=== PATIENT | male | born 1950 | race Caucasian/White ===

== ENCOUNTER 2018-07-31 06:28 | Inpatient (IN) | payer MEDICARE ==
[2018-07-25 10:41] LABS: BASOPHILS # (AUTO) 0.1 (0.0-0.1); BASOPHILS % 0.4 % (0.0-1.0); EOSINOPHILS # (AUTO) 0.2 (0.0-0.4); EOSINOPHILS % 2.1 % (0.0-6.0); HEMATOCRIT 42.6 % (38.2-49.6); LYMPHOCYTES # (AUTO) 3.3 (1.0-3.2); LYMPHOCYTES % 28.3 % (18.0-39.1); MEAN CORPUSCULAR HEMOGLOBIN 30.2 pg (28-32); MEAN CORPUSCULAR HGB CONC 32.9 g/dL (31-35); MONOCYTES # (AUTO) 0.8 (0.2-0.8); MONOCYTES % 7.1 % (4.4-11.3); NEUTROPHILS # (AUTO) 7.1 (2.1-6.9); NEUTROPHILS % 61.5 % (38.7-80.0); PLATELET COUNT 278 x10e3/uL (140-360); RED BLOOD COUNT 4.63 x10e6/uL (4.3-5.7); RED CELL DISTRIBUTION WIDTH 15.5 % (11.7-14.4)
--- NOTE | 2018-07-25 10:48 | Diagnostic Imaging Report ---
EXAMINATION: PA and lateral views of the chest. COMPARISON: None CLINICAL HISTORY: Preadmission DISCUSSION: Lines/tubes: None. Lungs: Right middle lobe atelectasis. Remainder lungs are clear. Pleura: No pleural effusion or pneumothorax. Heart and mediastinum: The cardiomediastinal silhouette is normal. Bones and soft tissues: No acute bony abnormalities. IMPRESSION: Right middle lobe atelectasis Signed by: Dr. Todd Tucker M.D. on 07/25/2018 10:45 AM
[2018-07-25 10:59] LABS: ANION GAP 16.3 mmol/L (8-16); BLOOD UREA NITROGEN 19 mg/dL (7-26); BUN/CREATININE RATIO 20 (6-25); CALCIUM 9.7 mg/dL (8.4-10.2); CARBON DIOXIDE 22 mmol/L (22-29); CHLORIDE 102 mmol/L (98-107); CREATININE, SERUM 0.96 mg/dL (0.72-1.25); EST GLOMERULAR FILTRATION RATE > 60 ML/MIN (60-); GLUCOSE 132 mg/dL (74-118); POTASSIUM 4.3 mmol/L (3.5-5.1); SODIUM 136 mmol/L (136-145)
[~2018-07-31] VITALS: Ht 172.7 cm; Wt 136.5 kg
[~2018-07-31 06:28] MED LIST: ALLOPURINOL300 MG PO; ANORO ELLIPTA; ASPIRIN81 MG; ATORVASTATIN CA20 MG PO; B12; BACLOFEN; BREO ELLIPTA; CENTRUM SILVER1 EAC3; CLOPIDOGREL75 MG PO; COMBIVENT RESPIM4 GM IH; GLIMEPIRIDE2 MG PO; INDOMETHACIN75 MG; JARDIANCE; LASIX20 MG PO; LISINOPRIL10 MG PO; MAGNESIUM OXID400 MG PO; METFORMIN HCL850 MG PO; POTASSIUM; PREDNISONE10 MG PO; RANITIDINE HCL150 MG; SPIRONOLACTONE25 MG PO; TRIAMCINOLONE A15 G1; VITAMIN C500 MG
--- OUTSIDE RECORDS SUMMARY | 2018-07-31 06:30 | XMS REPORT ---
Author Author [facility] Organization [facility] Address Unknown Phone Unavailable Care Team Providers Care Naval Architect Name Role Phone Dana ABEL Unavailable Unavailable Payers Payer Name Policy Type Policy Number Effective Date Expiration Date Problems This patient has no known problems. Allergies, Adverse Reactions, Alerts Allergy Name Allergy Type Status Severity Reaction(s) Onset Date Inactive Date Treating Clinician Comments SHRIMP DA Active SV 2014-11-14 00:00:00 Medications This patient has no known medications. Results Test Description Test Time Test Comments Text Results Atomic Results Result Comments CHEST 2 VIEWS 2018-07-25 10:44:00 [place] [address] Patient Name: JOSIANE DELGADO MR #: [id number] : 1950 Age/Sex: 68/M Req #: [id number] Adm Physician: Ordered by: ARCADIO ABEL MD Report #: [id number] Location: OR Room/Bed: Procedure: [id number] DX/CHEST 2 VIEWS Exam Date: 07/25/18 Exam Time: 1030 REPORT STATUS: Signed EXAMINATION: PA and lateral views of the chest. COMP ARISON: None CLINICAL HISTORY: Preadmission DISCUSSION: Lines/tubes: None. Lungs: Right middle lobe atelectasis. Remainder lungs are clear. Pleura: No pleural effusion or pneumothorax. Heart and mediastinum: The cardiomediastinal silhouette is normal. Bones and soft tissues: No acute bony abnormalities. IMPRESSION: Right middle lobe atelectasis Signed by: Dr. Ofe Baez M.D. on 07/25/2018 10:45 AM Dictated By: OFE BAEZ MD 1045 Transcribed By: JASPER on 07/25/18 1045 COPY TO: ARCADIO ABEL MD
[2018-07-31] MEDS ORDERED: LIDOCAINE HCL (LTA) 4 ML SOLN ONE (06:48)
[2018-07-31] MEDS ORDERED: ACETAMINOPHEN 1000 MG/100 ML 100 ML IV ONE (06:48)
[2018-07-31] MEDS ORDERED: SCOPOLAMINE 1.5 MG PATCH ONE (06:48)
[2018-07-31] MEDS ORDERED: CEFAZOLIN SOD 2 GM/D5W 50ML 50 ML IV ONE (07:18)
[2018-07-31] MEDS ORDERED: BUPIVACAINE 0.25% 30ML SDV INJ ONE (08:28)
--- NOTE | 2018-07-31 09:16 | NUR ---
SPIRITUAL CARE - Pre-Surgery Assessment: Pt in bed. Pt's at bedside. Pt reported supportive attention from family and friends. Intervention: I provided pastoral presence, hospitality, and sympathetic listening. I acquainted pt with availability of sales planning analyst while hospitalized. Outcome: Pt expressed appreciation for visit. No need for follow up indicated at this time. KAYLI Yusuflain Spiritual Care Department O: [phone] Pager: [phone] ([phone] + number calling from)
[2018-07-31] MEDS ORDERED: SUGAMMADEX SODIUM 200 MG/2 ML VIAL IV ONE (10:03)
[2018-07-31] MEDS ORDERED: LACTATED RINGER'S 1,000 ML IV SCH (10:17)
[2018-07-31] MEDS ORDERED: SCOPOLAMINE 1.5 MG PATCH TOP SCH (10:30)
[2018-07-31] MEDS ORDERED: DEXTROSE 50% SYRINGE 50 ML IV PRN (10:30)
[2018-07-31] MEDS ORDERED: FENTANYL CITRATE/PF 100MCG/2 ML INJ ONE ×2 (10:40→18:47)
--- NOTE | 2018-07-31 10:43 | Operative Report ---
DATE OF PROCEDURE: July 31, 2018 PREOPERATIVE DIAGNOSES 1. Morbid obesity, body mass index of 45. 2. Type 2 diabetes mellitus. 3. Coronary artery disease. POSTOPERATIVE DIAGNOSES 1. Morbid obesity, body mass index of 45. 2. Type 2 diabetes mellitus. 3. Coronary artery disease. PREOPERATIVE INDICATIONS: Treat disease, prevent complications related to comorbid conditions of obesity. PROCEDURE PERFORMED: Laparoscopic vertical sleeve gastrectomy. ANESTHESIA: General. NAVAL AIRCREWMAN OPERATOR: Socrates David Acetylene Cylinder Packing Mixer (needed due to complexity of case). FLUIDS: 1 L crystalloid. ESTIMATED BLOOD LOSS: 20 mL. DRAINS: None. COMPLICATIONS: None. SPECIMENS: Partial stomach. GRAFTS: None. FINDINGS 1. Adhesions from previous abdominal operation. 2. Otherwise normal upper GI anatomy. 3. Negative intraoperative EGD leak test. PROCEDURAL DETAILS: The patient was brought to the operating room and was intubated under general endotracheal anesthesia. He was sterilely prepped and draped in the usual fashion. A preprocedure pause was performed identifying the patient and the use of perioperative antibiotics, intended procedure, and the staff surgeon. Access was gained through a 5-mm left subcostal incision using a Veress needle. Four additional trocars were placed in standard positions. Abdomen was insufflated. There were adhesions from his previous operation which were carefully lysed using a combination of blunt dissection as well as the [place] LigaSure device. I then placed a liver retractor to expose the stomach and the hiatus. I mobilized the greater curvature of the stomach by ligating the gastroepiploic, short gastric, and posterior short gastric vessels using the [place] LigaSure device. This was done from about 4 cm proximal to the pyloric valve to the left lacy of the diaphragm. Once this was completed, I then inserted an adult-size endoscope along the lesser curvature of the stomach to be used as a bougie. The greater curvature of the stomach was resected with multiple firings of an Endo-LOLY 60-mm purple-load Covidien stapling device which was reinforced with Seamguard. Once the greater curvature of the stomach was resected, we did an intraoperative EGD leak test. No leaks were identified. The specimen was removed through the right periumbilical port site. The periumbilical port site was closed with 0 Vicryl suture using the Venkata-Aden technique in a jnisli-tc-ljcan fashion. We verified hemostasis, removed the liver retractor, desufflated the abdomen, and removed the trocars. Incision sites were closed with 4-0 Monocryl suture in a subcuticular fashion. Dermabond dressings were applied. Bupivacaine 0.25% was used at both the preperitoneal incision sites. The patient tolerated the procedure well. All surgical sponge and instrument counts were correct. The wound was type 2, clean-contaminated. Job#: [id number] TAYLOR
[2018-07-31] MEDS: ENOXAPARIN SOD INJ 40 MG/0.4 ML SYR SC SCH ×2 (11:00→17:00)
[2018-07-31] MEDS: INSULIN REGULAR, HUMAN 100 UNIT/1 ML 3ML VIAL SQ SCH ×2 (11:30→21:00)
[2018-07-31] MEDS ORDERED: HYDROMORPHONE 2MG/ML 2 MG/ML ML ONE (11:38)
[2018-07-31] MEDS ORDERED: TRIAMCINOLONE ACET 0.1% CREAM 15 GM TUBE TOP PRN (12:15)
[2018-07-31] MEDS ORDERED: ONDANSETRON HCL INJ 2MG/ML 2ML 2 MG/ML VIAL ONE ×2 (13:43→17:28)
[2018-07-31] MEDS: ONDANSETRON HCL INJ 2MG/ML 2ML 2 MG/ML VIAL IV PRN (14:01)
[2018-07-31] MEDS: SPIRONOLACTONE 25 MG TAB PO SCH (17:00)
[2018-07-31] MEDS ORDERED: SEVOFLURANE INHAL SOLN 250 ML PEN BTL ONE (17:28)
[2018-07-31] MEDS ORDERED: LIDOCAINE HCL 2% LOCAL INJ 5 ML SDV VIAL INJ ONE (17:28)
[2018-07-31] MEDS ORDERED: EPHEDRINE SULFATE INJ 50 MG/10 ML SYR ONE (17:28)
[2018-07-31] MEDS ORDERED: DEXAMETHASONE SOD PHOS INJ 4 MG/ML VIAL ONE (17:28)
[2018-07-31] MEDS ORDERED: ROCURONIUM BROMIDE 10 MG/ML 5ML VIAL ONE (17:28)
[2018-07-31] MEDS ORDERED: PROPOFOL IV EMULSION 10 MG/ML 20 ML VIAL ONE (17:28)
--- NOTE | 2018-07-31 18:00 | NUR ---
received to rm aaox3,no distress noted, 5 trochar sites to abdomen c/d/i, ivf infusing to r hand 20g no ss of infiltration noted, updated on poc voiced understanding, denies pain at this time, call light in reach will continue to monitor
[2018-07-31] MEDS ORDERED: MIDAZOLAM HCL 2 MG/2 ML VIAL ONE (18:47)
[2018-07-31] MEDS: IPRATROPIUM/ALBUTEROL SULFATE 4 GM INH INH SCH (19:00)
--- NOTE | 2018-07-31 19:31 | Consultation ---
DATE OF CONSULTATION: 07/31/2018 REASON FOR CONSULTATION: Medical management. HISTORY OF PRESENT ILLNESS: This is a 68-year-old white man, who was admitted to [facility] with diagnosis of extreme obesity, BMI of 45, complicating underlying hypertension and type 2 diabetes mellitus. Today, the patient underwent successful laparoscopy vertical sleeve gastrectomy that was performed by his bariatric surgeon namely, Dr. Brian Carlisle. The patient is currently in the postanesthesia care unit and he voices no complaints. REVIEW OF SYSTEMS: GENERAL: Weight is stable. No fever or chills. HEENT: No headaches. No visual changes. CARDIOVASCULAR/RESPIRATORY: No chest pain. No shortness of breath. GI: Minimal midepigastric abdominal pain. Denies any nausea or vomiting at this time. : Goldberg catheter has been removed. NEUROMUSCULAR: No limb weakness or numbness. ALLERGIES: NO KNOWN DRUG ALLERGIES. PAST MEDICAL HISTORY: 1. Coronary artery disease (history of coronary stent placement in 2 coronary arteries in 2004). 2. Ischemic heart disease (history of myocardial infarction age 42). 3. Type 2 diabetes mellitus. 4. Hyperlipidemia. 5. Extreme obesity, BMI 45. 6. GERD. 7. History of gout. 8. Chronic bronchitis. FAMILY HISTORY: Multiple family members with hypertension, but no family history of coronary artery disease or type 2 diabetes mellitus. PAST SURGICAL HISTORY: 1. Coronary artery stent placement in 2 coronary arteries in 2004. 2. Chest wall abscess incision and drainage recently. 3. Sigmoid colon resection on 2 different occasions. 4. Diverting colostomy placement and then removal. SOCIAL HISTORY: He is , lives his . He worked 30 years at [employer]. He is now retired. Quit tobacco smoking in 1989. Denies any alcohol use. MEDICATIONS: 1. Allopurinol 300 mg daily. 2. Aspirin 81 mg daily. 3. Clopidogrel 75 mg daily. 4. Metformin 1000 mg daily. 5. Jardiance 25 mg daily. 6. Potassium chloride 20 mEq daily. 7. Ranitidine 150 mg daily. 8. Prednisone 10 mg daily. 9. Glimepiride 4 mg daily. 10. Lisinopril 10 mg daily. 11. Atorvastatin 20 mg at bedtime. 12. Indomethacin 75 mg every night as needed for arthritic gout pain. 13. Magnesium oxide 400 mg daily as needed for leg cramps. 14. Centrum Silver. 15. Vitamin B12 of 1000 mcg daily. 16. Vitamin C 500 mg daily. 17. Furosemide 20 mg b.i.d. as needed for leg swelling. 18. Spironolactone 12.5 mg once daily as needed for leg swelling. 19. Baclofen 10 mg daily as needed for muscle spasms. 20. Breo Ellipta inhaler one puff daily. 21. Anoro 62.5 mcg/25 mcg one puff daily. 22. Triamcinolone 0.1% cream applied to affected area daily. 23. Ipratropium bromide/albuterol sulfate nebulized treatments every 6 hours as needed for shortness of breath and wheezing. PHYSICAL EXAMINATION: GENERAL: He is awake, alert and oriented. He is very pleasant and conversant. VITAL SIGNS: Blood pressure 120/60, pulse 84, respirator rate is 18, oxygen saturation 100% on 2 L of oxygen. Height 5 feet 8 inches. Weight is 286 pounds, BMI is 45. He is afebrile. INTEGUMENTARY: Skin is warm and dry. No pallor or diaphoresis. HEENT: Anicteric sclerae with moist mucous membranes. NECK: Supple. CARDIOVASCULAR: Distant heart sounds. Regular rate and rhythm. LUNGS: No rales. No rhonchi. No wheezes. ABDOMEN: Obese, benign. No bowel sounds appreciated. EXTREMITIES: No edema or deformity. NEUROLOGIC: Intact. DIAGNOSES: 1. Status post sleeve gastrectomy. 2. Extreme obesity, BMI 45, complicating underlying hypertension and type 2 diabetes mellitus. 3. Coronary artery disease (coronary stents placed in 2 different arteries in 2004). 4. Type 2 diabetes mellitus. PLAN: 1. Encourage incentive spirometry use to prevent atelectasis. 2. Mobilize. 3. Start enoxaparin to prevent deep venous thrombosis. 4. Continue home medications. 5. We will hold all NSAIDs to prevent acute tubular necrosis. 6. We will also hold metformin at this time. 7. We will restart FRED inhibitor namely, lisinopril tomorrow, which will be the first day after surgery. 8. Blood glucose control. 9. Blood pressure control. I spent 45 minutes in the care of this patient. Luis Manuel E Orahood, MD MEO/ROSA /[id number] MTDOwen
[2018-07-31 20:00] VITALS: BP 129/67
[2018-07-31] MEDS ORDERED: ATORVASTATIN 40 MG TAB PO SCH (21:00)
[2018-07-31] MEDS: MORPHINE SULFATE INJ 4 MG/ML INJ 1ML IV PRN (22:00)
[2018-08-01] VITALS: BP 122/57
--- NOTE | 2018-08-01 | NUR ---
PT IN BED, UP TO RESTROOM, VS STABLE, CALL LIGHT IN REACH, NO DISTRESS NOTED
[2018-08-01] MEDS: MORPHINE SULFATE INJ 4 MG/ML INJ 1ML IV PRN ×2 (01:10→05:29)
[2018-08-01 04:00] VITALS: BP 122/58
[2018-08-01] MEDS: ONDANSETRON HCL INJ 2MG/ML 2ML 2 MG/ML VIAL IV PRN (05:30)
[2018-08-01 06:07] LABS: BASOPHILS % 0.1 % (0.0-1.0); EOSINOPHILS % 0.1 % (0.0-6.0); HEMOGLOBIN 12.6 g/dL (14.0-18.0); LYMPHOCYTES # (AUTO) 2.3 (1.0-3.2); LYMPHOCYTES % 15.3 % (18.0-39.1); MEAN CORPUSCULAR HEMOGLOBIN 29.4 pg (28-32); MEAN CORPUSCULAR HGB CONC 30.7 g/dL (31-35); MEAN CORPUSCULAR VOLUME 95.6 fL (81-99); MONOCYTES # (AUTO) 1.1 (0.2-0.8); MONOCYTES % 7.4 % (4.4-11.3); NEUTROPHILS # (AUTO) 11.3 (2.1-6.9); NEUTROPHILS % 76.6 % (38.7-80.0); PLATELET COUNT 246 x10e3/uL (140-360); RED BLOOD COUNT 4.29 x10e6/uL (4.3-5.7); RED CELL DISTRIBUTION WIDTH 15.5 % (11.7-14.4)
[2018-08-01 06:39] LABS: ALANINE AMINOTRANSFERASE 48 IU/L (0-55); ALBUMIN 3.8 g/dL (3.5-5.0); ALBUMIN/GLOBULIN RATIO 1.3 (0.8-2.0); ALKALINE PHOSPHATASE 74 IU/L (40-150); ANION GAP 14.5 mmol/L (8-16); BLOOD UREA NITROGEN 16 mg/dL (7-26); BUN/CREATININE RATIO 16 (6-25); CALCIUM 9.5 mg/dL (8.4-10.2); CARBON DIOXIDE 28 mmol/L (22-29); CHLORIDE 100 mmol/L (98-107); CREATININE, SERUM 0.98 mg/dL (0.72-1.25); EST GLOMERULAR FILTRATION RATE > 60 ML/MIN (60-); GLUCOSE 102 mg/dL (74-118); PHOSPHORUS 3.5 MG/DL (2.3-4.7); POTASSIUM 4.5 mmol/L (3.5-5.1); SODIUM 138 mmol/L (136-145)
--- NOTE | 2018-08-01 06:45 | NUR ---
PT IN BED, NO DISTRESS NOTED, CALL LIGHT IN REACH, VS STABLE
[2018-08-01] MEDS: IPRATROPIUM/ALBUTEROL SULFATE 4 GM INH INH SCH ×2 (07:00→11:50)
--- NOTE | 2018-08-01 07:24 | NUR ---
Progress note S: No major complaints O: AF, VSS; labs reviewed, within normal limits Gen- no distress Abd- soft, incisions c/d/i A/P: POD 1, s/p Lap sleeve gastrectomy -Clears, ambulate, IS, OOB to chair -ok to d/c home -f/u next week -instructions given
[2018-08-01] MEDS: INSULIN REGULAR, HUMAN 100 UNIT/1 ML 3ML VIAL SQ SCH ×3 (07:30→16:30)
[2018-08-01 07:55] VITALS: BP 109/57
[2018-08-01] MEDS ORDERED: METFORMIN HCL 500 MG TAB PO SCH (08:00)
[2018-08-01] MEDS ORDERED: ASPIRIN 81 MG CHEW TAB PO SCH (09:00)
[2018-08-01] MEDS ORDERED: GLIMEPIRIDE 2 MG TAB PO SCH (09:00)
[2018-08-01] MEDS ORDERED: METFORMIN HCL 850 MG TAB PO SCH (09:00)
[2018-08-01] MEDS ORDERED: ALLOPURINOL 300 MG TAB PO SCH (09:00)
[2018-08-01] MEDS ORDERED: PREDNISONE 10 MG TAB PO SCH (09:00)
[2018-08-01] MEDS ORDERED: CLOPIDOGREL BISULFATE 75 MG TAB PO SCH (09:00)
[2018-08-01] MEDS ORDERED: MAGNESIUM OXIDE 400 MG TAB PO SCH (09:00)
[2018-08-01] MEDS: SPIRONOLACTONE 25 MG TAB PO SCH ×2 (09:13→16:59)
[2018-08-01] MEDS: HYDROCODONE/APAP 7.5MG-325MG 1 EA TAB PO PRN ×2 (09:14→13:15)
[2018-08-01] MEDS: ENOXAPARIN SOD INJ 40 MG/0.4 ML SYR SC SCH ×2 (09:14→16:59)
[2018-08-01 10:09] VITALS: BP 109/57
[2018-08-01 12:55] VITALS: BP 123/65
--- NOTE | 2018-08-01 13:02 | NUR ---
Nutrition Screen Note RD Recommendation for Physician: -Rec advancing diet to bariatric full liquid as tolerated -Rec Ensure Max BID when advance to bariatric full liquid diet -RD provided bariatric diet education as consulted on 08/01. Plan of Care: RD following, monitoring for tolerance and adequacy, diet education Nutrition reason for involvement: MD Consult bariatric diet progression Primary Diagnose(s): s/p lap sleeve gastrectomy PMH: CAD, ischemia heart disease, DM, HLD, extreme obesity, GERD, gout chronic bronchitis Ht: 68in Wt: 301lb BMI: 45.8kg/m2 IBW: 154lb RD Assessment: (08/01) Chart reviewed. Labs and meds reviewed. 68yo M, who was s/p lap sleeve gastrectomy. POD 1. Visited pt in the room. Pt complained of gas and tenderness on surgical site. Clear liquid was tolerated fairly well at time of my visit. RD provided bariatric diet education as consulted. Pt will f/u with Dr. Nichols after d/c. Will continue to monitor and follow. Current Diet: bariatric clear liquid Malnutrition Evaluation (08/01/2018) The patient does not meet criteria for a specified degree of malnutrition at this time. Will re-evaluate at follow-up as appropriate. Diet Education Needs Assessment: Diet education indicated, pt was agreeable with plan. Learner(s): pt Time spent: 20minutes Barriers: none Cultural/Language Modifications: No cultural/language modifications noted. Pt speaks Finnish. Readiness: acceptance Method: explanation/ discussion, handout Topics: Bariatric diet (clear liquid, full liquid, pureed) Understanding/Compliance: good compliance expected, needs reinforcement at outpatient bariatric clinic, all questions have been answered Nutrition Care Level: low Signed: Leticia Ng, , RD, LD
--- NOTE | 2018-08-01 13:41 | NUR ---
CASE MANAGEMENT ASSESSMENT Lead Simulation Modeling Engineer to bedside to discuss plan of care with patient/family. CM/SW role and care transitions discussed. Anticipated discharge plan discussed along with duration of care. CM/SW discussed patients right to make decisions in care. CM/SW work hours given. Patient lives: with , daughter and two grandkids Admit/Transfer: from PACU Hospital/ER visits since last admit: last hospitalization 2 months ago at [facility] for pneumonia POA/Emergency contact: Marine Song [phone] Current/Previous Home Health: none PCP/Follow-up Care: Dr. Rodo Rodriguez - PCP; Dr. Carlisle - surgeon; pt states he has an appointment with Dr. Carlisle next Tuesday at 3pm Current/Previous DME: walker, cane, home oxygen - uses PRN Medications (referring to index hospitalization or the first time you were in the hospital) a. Were changes made in your medications when you were in the hospital 2 months ago? yes b. Did you understand the changes? yes; antibiotics for pneumonia x 5 days c. Were you able to obtain your new medications right away? yes d. Were you able to take your medications like the doctor wanted you to? yes e. Did the hospital give you an accurate, easy to understand list of medications when you left? yes Scale of 1-10 how comfortable does patient feel with disease management in outpatient settin States manages everything for him Other Services: none Employment Status: retired Areas of Concerns: none Referral Needs: none Education Needs: post op; bariatric diet IMM/REILLY given and signed (if applicable): IMM letter delivered and explained to pt. He verbalized understanding. Signed copy placed in chart. Copy to pt. Goal for discharge: Home CM/SW left business card at the bedside with contact information. Name and number was also written on the patients whiteboard. Patient verbalized understanding of discussion. CM will follow-up with ongoing discharge and transition of care needs.
--- NOTE | 2018-08-01 14:05 | NUR ---
Visit made by the Spiritual Care Department Pastoral Visitor, Stephenie Polanco. PV provided pastoral presence, prayer, hospitality, and supportive listening. Pastoral Visitor informed pt/family of the scope of Meter Shop Supervisor Services and availability. KAYLI TARIQ Fabrication And Assembly Supervisor Spiritual Care Department O: [phone] Pager: [phone] ([phone] number calling from)
--- NOTE | 2018-08-01 15:18 | NUR ---
DISCHARGE INSTRUCTIONS AND PRESCRIPTION GIVEN. PT VERBALIZE UNDERSTANDING. PT HAS APPT WITH DR. AVENDANO NEXT WEEK. AWAITING RIDE HOME.
[2018-08-01 16:57] VITALS: BP 146/71
--- NOTE | 2018-08-02 07:31 | Discharge Summary ---
ADMITTING DIAGNOSES: 1. Extreme obesity, BMI 41 complicating underlying hypertension and type 2 diabetes mellitus. 2. Coronary artery disease (coronary stents placed in 2 different coronary arteries in 2004). 3. Type 2 diabetes mellitus. 4. Ischemic heart disease (history of myocardial infarction twice at age 42 and age 54). DISCHARGE DIAGNOSES: 1. Status post laparoscopic sleeve gastrectomy. 2. Extreme obesity, BMI complicating underlying hypertension and type 2 diabetes mellitus. 3. Hypothyroid disease. 4. Type 2 diabetes mellitus. 5. Coronary artery disease (history of coronary artery stent placement in 2 different coronary arteries in 2004). HOSPITAL COURSE: This is a 68-year-old white man, who was initially admitted to [facility] with diagnosis of extreme obesity, BMI of 45 that was complicating underlying hypertension and type 2 diabetes mellitus. During this hospitalization, the patient was seen by his bariatric surgeon, Dr. Brian Carlisle, who performed successful laparoscopic vertical sleeve gastrectomy. The patient tolerated the surgery quite well. During the surgery, the patient underwent an EGD, which revealed a negative leak test and it also revealed a normal upper gastrointestinal anatomy. During the surgery, adhesions from previous abdominal operations were appreciated. The patient's brief hospitalization was unremarkable. On discharge, he was tolerating clear liquid diet. The patient's condition on discharge stable. DISCHARGE MEDICATIONS: 1. Tylenol No. 3 one pill every 6 hours p.r.n. pain, 25 prescribed, no refills. 2. Spironolactone 25 mg b.i.d. 3. Atorvastatin 40 mg at bedtime. 4. Metformin 1000 mg b.i.d. 5. Triamcinolone 0.5% cream apply to affected area daily. 6. Prednisone 10 mg daily. 7. Magnesium oxide 400 mg daily. 8. Glimepiride 4 mg daily. 9. Clopidogrel 75 mg daily. 10. Aspirin 81 mg daily. 11. Allopurinol 300 mg daily. FOLLOWUP INSTRUCTIONS: The patient is instructed to follow up with Dr. Brian Carlisle in 1 week and with primary care physician in 2 weeks. MD CORRINE Lund/ROSA /[id number] cc: Brian Carlisle MD
== END 2018-08-01 17:20 | disposition home or self-care (01) | DRG 621 ==
LOC: OR 06:28 → PACU V 13:09 → MED/SURG 17:46
PROVIDERS: ADMIT Internal Medicine; ATTEND Internal Medicine
PROC: 0DB64Z3 Excision of Stomach, Percutaneous Endoscopic Approach, Vertical (ICD-10-PCS; principal; 2018-07-31 09:00)
DX: E66.01 Morbid (severe) obesity due to excess calories (principal); Z68.42 Body mass index [BMI] 45.0-49.9, adult; I25.10 Atherosclerotic heart disease of native coronary artery without angina pectoris; E78.5 Hyperlipidemia, unspecified; I25.2 Old myocardial infarction; E11.9 Type 2 diabetes mellitus without complications; M10.9 Gout, unspecified; J42 Unspecified chronic bronchitis; Z68.41 Body mass index [BMI] 40.0-44.9, adult; E03.9 Hypothyroidism, unspecified; Z95.5 Presence of coronary angioplasty implant and graft; Z79.4 Long term (current) use of insulin; Z79.82 Long term (current) use of aspirin; Z79.899 Other long term (current) drug therapy; M1A.9XX0 Chronic gout, unspecified, without tophus (tophi)
CPT/HCPCS: 36415; 71046; 80048; 80053; 82948; 83735; 84100; 85025; 93005; 94664; J0690; J1100; J1650; J2001; J2250; J2270; J2405; J7121; J7512